=== PATIENT | male | born 1980 | race Hispanic/Latino ===

== ENCOUNTER 2020-07-16 04:04 | Emergency (ER) | payer BC ==
[2020-07-16 04:31] VITALS: BP 116/66
[2020-07-16] MEDS ORDERED: SODIUM CHLORIDE 0.9% 1000 ML 1,000 ML IV ONE (04:36)
[2020-07-16] MEDS ORDERED: KETOROLAC 30 MG/1 ML INJ IV ONE (04:36)
[2020-07-16] MEDS ORDERED: ONDANSETRON 4 MG/2 ML INJ IV ONE ×2 (04:36→05:10)
[2020-07-16] MEDS ORDERED: ONDANSETRON 4 MG/2 ML INJ ONE (04:39)
[2020-07-16] MEDS ORDERED: SODIUM CHLORIDE 0.9% 1000 ML 1,000 ML ONE (04:39)
[2020-07-16] MEDS ORDERED: KETOROLAC 30 MG/1 ML INJ ONE (04:39)
[2020-07-16 05:02] LABS: Basophils % (Auto) 0.2 % (0.0-1.8); Eosinophils # (Auto) 0.1 K/mm3 (0.0-0.4); Eosinophils % (Auto) 0.9 % (0.0-4.3); Lymphocytes # (Auto) 2.5 K/mm3 (1.2-5.4); Lymphocytes % (Auto) 15.3 % (13.4-35.0); Mean Corpuscular HGB Conc 34 % (32-34); Mean Corpuscular Volume 87 fl (84-94); Monocytes # (Auto) 1.2 K/mm3 (0.0-0.8); Monocytes % (Auto) 7.2 % (0.0-7.3); Platelet Count 289 K/mm3 (140-440); Red Cell Distribution Width 13.7 % (13.2-15.2)
[2020-07-16] MEDS ORDERED: MORPHINE 4 MG/1 ML INJ IV ONE (05:10)
[2020-07-16 05:18] LABS: BUN/Creatinine Ratio 18; Blood Urea Nitrogen 18 mg/dL (9-20); Hemolysis Index 12
--- NOTE | 2020-07-16 05:24 | Cat Scan Report ---
CT abdomen pelvis wo con INDICATION / CLINICAL INFORMATION: LEFT sided flank pain with nausea and vomiting, blood in urine. TECHNIQUE: Axial CT imaging of abdomen and pelvis was obtained without contrast. Coronal and sagittal reformatte d imaging obtained and reviewed. All CT scans at this location are performed using CT dose reduction for ALARA by means of automated exposure control. COMPARISON: None available. FINDINGS: CT abdomen without contrast demonstrates normal appearance of the liver, spleen, pancreas, and adrena l glands, for noncontrast exam. Gallbladder is unremarkable. There are several calculi noted throughout both kidneys. There is mild hydronephrosis of the left kid jerry, caused by a calculus in the distal left ureter measuring 3-4 mm. No perinephric inflammatory trang nge. CT pelvis without contrast does not demonstrate any pelvic mass, free fluid, or focal inflammatory ch obdulio. Normal appendix is present in the right lower quadrant. GI tract is unremarkable. Prostate glan d is of normal size and appearance. Visualized lung bases are clear. No acute osseous abnormality. IMPRESSION: 1. Mild left hydronephrosis caused by a 3-4 mm calculus in the distal left ureter, 1 cm from the left UVJ. 2. Bilateral nephrolithiasis. Signer Name: Stacie Heck MD Signed: 07/16/2020 5:19 AM Workstation Name: [id number]
[2020-07-16] MEDS ORDERED: cefTRIAXone/NS 1 GM/50 ML 1 GM/50 ML BAG IV ONE (05:27)
--- NOTE | 2020-07-16 06:04 | Emergency Department Report ---
ED Abdominal Pain HPI - General Chief Complaint: Abdominal Pain Stated Complaint: VOMITING/BLOOD IN URINE/LT SIDE PAIN Time Seen by Provider: 07/16/20 05:55 Source: patient Mode of arrival: Ambulatory Limitations: No Limitations - History of Present Illness Initial Comments: Patient 39-year-old white male with history of renal stones who presents for jonny ateral flank pain radiating suprapubic. Pain described as 7/10 sharp aching. Pain is exacerbated by nothing. Pain is relieved by nothing tried. There is been no fever or chills no nausea or vomiting. MD Complaint: abdominal pain, flank pain Severity scale (0 -10): 5 - Related Data Previous Rx's Medication Instructions Recorded Last Taken Type Ketorolac [Toradol] 10 mg PO Q6H PRN #12 tablet 07/16/20 Unknown Rx Tamsulosin [Flomax] 0.4 mg PO QDAY #7 cap 07/16/20 Unknown Rx levoFLOXacin [Levaquin TAB] 500 mg PO DAILY 10 Days #10 tablet 07/16/20 Unknown Rx Allergies Allergy/AdvReac Type Severity Reaction Status Date / Time Penicillins Allergy Hives Verified 07/16/20 04:30 ED Review of Systems ROS: Stated complaint: VOMITING/BLOOD IN URINE/LT SIDE PAIN Other details as noted in HPI Constitutional: denies: chills, fever Eyes: denies: eye pain, eye discharge, vision change ENT: denies: ear pain, throat pain Respiratory: denies: cough, shortness of breath, wheezing Cardiovascular: denies: chest pain, palpitations Endocrine: no symptoms reported Gastrointestinal: abdominal pain Genitourinary: urgency, dysuria, frequency. denies: hematuria, discharge Musculoskeletal: back pain Skin: denies: rash, lesions Neurological: denies: headache, weakness, paresthesias Psychiatric: denies: anxiety, depression Hematological/Lymphatic: denies: easy bleeding, easy bruising ED Past Medical Hx - Past Medical History Previous Medical History?: Yes Hx Kidney Stones: Yes - Surgical History Past Surgical History?: No - Social History Smoking Status: Never Smoker Substance Use Type: None - Medications Home Medications: Home Medications Medication Instructions Recorded Confirmed Last Taken Type Ketorolac [Toradol] 10 mg PO Q6H PRN #12 tablet 07/16/20 Unknown Rx Tamsulosin [Flomax] 0.4 mg PO QDAY #7 cap 07/16/20 Unknown Rx levoFLOXacin [Levaquin TAB] 500 mg PO DAILY 10 Days #10 tablet 07/16/20 Unknown Rx ED Physical Exam - General Limitations: No Limitations General appearance: alert, in no apparent distress - Head Head exam: Present: atraumatic, normocephalic - Eye Eye exam: Present: normal appearance - ENT ENT exam: Present: mucous membranes moist - Neck Neck exam: Present: normal inspection, full ROM. Absent: tenderness - Respiratory Respiratory exam: Present: normal lung sounds bilaterally. Absent: respiratory distress, wheezes - Cardiovascular Cardiovascular Exam: Present: regular rate, normal rhythm, normal heart sounds. Absent: systolic murmur, diastolic murmur, rubs, gallop - GI/Abdominal GI/Abdominal exam: Present: soft, tenderness (right flank), normal bowel sounds. Absent: distended, guarding, rebound, rigid, bruit, hernia - Rectal Rectal exam: Present: deferred - Extremities Exam Extremities exam: Present: normal inspection, full ROM, normal capillary refill - Back Exam Back exam: Present: normal inspection, full ROM, CVA tenderness (R). Absent: CVA tenderness (L) - Neurological Exam Neurological exam: Present: alert, oriented X3, CN II-XII intact, normal gait - Psychiatric Psychiatric exam: Present: normal affect, normal mood - Skin Skin exam: Present: warm, dry, intact, normal color. Absent: rash ED Course Vital Signs 07/16/20 04:29 Temperature 98.6 F Pulse Rate 68 Respiratory 18 Rate Blood Pressure 116/66 O2 Sat by Pulse 100 Oximetry ED Medical Decision Making - Lab Data Result diagrams: 07/16/20 04:43 07/16/20 04:43 Labs 07/16/20 07/16/20 04:43 04:43 WBC 16.6 H RBC 5.40 H Hgb 16.0 H Hct 47.0 H MCV 87 MCH 30 MCHC 34 RDW 13.7 Plt Count 289 Lymph % (Auto) 15.3 [place] % (Auto) 7.2 Eos % (Auto) 0.9 Baso % (Auto) 0.2 Lymph # (Auto) 2.5 [place] # (Auto) 1.2 H Eos # (Auto) 0.1 Baso # (Auto) 0.0 Seg Neutrophils % 76.4 H Seg Neutrophils # 12.7 H Sodium 139 Potassium 3.6 Chloride 98.0 Carbon Dioxide 21 L Anion Gap 24 BUN 18 Creatinine 1.0 Estimated GFR > 60 BUN/Creatinine Ratio 18 Glucose 128 H Calcium 10.0 - Radiology Data Radiology results: report reviewed, image reviewed CT abdomen pelvis wo con INDICATION / CLINICAL INFORMATION: LEFT sided flank pain with nausea and vomiting, blood in urine. TECHNIQUE: Axial CT imaging of abdomen and pelvis was obtained without contrast. Coronal and sagittal reformatted imaging obtained and reviewed. All CT scans at this location are performed using CT dose reduction for ALARA by means of automated exposure control. COMPARISON: None available. FINDINGS: CT abdomen without contrast demonstrates normal appearance of the liver, spleen, pancreas, and adrenal glands, for noncontrast exam. Gallbladder is unremarkable. There are several calculi noted throughout both kidneys. There is mild hydronephrosis of the left kidney, caused by a calculus in the distal left ureter measuring 3-4 mm. No perinephric inflammatory change. CT pelvis without contrast does not demonstrate any pelvic mass, free fluid, or focal inflammatory change. Normal appendix is present in the right lower quadrant. GI tract is unremarkable. Prostate gland is of normal size and appearance. Visualized lung bases are clear. No acute osseous abnormality. IMPRESSION: 1. Mild left hydronephrosis caused by a 3-4 mm calculus in the distal left ureter, 1 cm from the left UVJ. 2. Bilateral nephrolithiasis. Signer Name: Stacie Heck MD Signed: 07/16/2020 5:19 AM Workstation Name: [id number] Transcribed By: JR Dictated By: Stacie Heck MD Electronically Authenticated By: Stacie Heck MD Signed Date/Time: 07/16/20518 DD/ 4 TD/TT: - Medical Decision Making CT Abd Pelvis:Mild left hydronephrosis caused by a 3-4 mm calculus in the distal left ureter, 1 cm from the left UVJ. 2., wbc: 16, Pain is relieved with medications given in ed, plan: DC to self wtih rx, pt will follow up with urology in 2-3 days, return to emergency if unable to void to worsening symptoms. Critical care attestation.: If time is entered above; I have spent that time in minutes in the direct care of this critically ill patient, excluding procedure time. ED Disposition Clinical Impression: Renal stones Disposition: DC-01 TO HOME OR SELFCARE Is pt being admited?: No Does the pt Need Aspirin: No Condition: Stable Instructions: Low-Purine Eating Plan, Kidney Stones, [id number] Additional Instructions: Take medications as prescribed. Follow-up with urology in 2 to 3 days. Return to emergency if unable to void or symptoms worsen. Prescriptions: Tamsulosin [Flomax] 0.4 mg PO QDAY #7 cap levoFLOXacin [Levaquin TAB] 500 mg PO DAILY 10 Days #10 tablet Ketorolac [Toradol] 10 mg PO Q6H PRN #12 tablet PRN Reason: Pain Referrals: KAUSHIK PALMER MD [Staff Physician] - 3-5 Days Forms: Work/School Release Form(ED) Time of Disposition: 06:10
[2020-07-16 06:28] LABS: Bilirubin,Urine NEG (Negative); Blood,Urine LG (Negative); Color,Urine Amber (Yellow); Mucus,Urine FEW /HPF
[2020-07-16 06:35] LABS: RBC,Urine > 182.0 /HPF (0.0-6.0)
== END 2020-07-16 06:20 | disposition home or self-care (01) ==
LOC: ED 04:04
DX: N20.0 Calculus of kidney (principal); Z79.899 Other long term (current) drug therapy; Z88.0 Allergy status to penicillin
CPT/HCPCS: 36415; 74176; 80048; 81001; 85025; 87086; 96361; 96365; 96375; 99284; J0696; J1885; J2405; J7030